=== PATIENT | male | born 1980 | race Caucasian/White ===

== ENCOUNTER 2018-12-08 07:28 | Day surgery (SDC) | payer BC ==
[2018-12-03 12:09] VITALS: BMI 31.4
[~2018-12-08 07:28] MED LIST: HYDROmorphone 0.5 MG/0.5 ML SYRINGE IVP PRN; LACTATED RINGERS 1,000 ML IV SCH; MORPHINE SULFATE 4 MG/ML SYRINGE IV PRN
[2018-12-08 07:43] VITALS: RESP 16; TEMP 97
[2018-12-08] MEDS ORDERED: LIDOCAINE 1% 20 ML VIAL (10MG/ML) FOR IV START INTRADERMA ONE (07:48)
[2018-12-08] MEDS ORDERED: MIDAZOLAM 2 MG/2 ML VIAL ONE (08:01)
[2018-12-08] MEDS ORDERED: PROPOFOL 10 MG/ML 20 ML VIAL IV ONE (08:01)
[2018-12-08] MEDS ORDERED: LIDOCAINE 1% INJ 10MG/ML (20 ML MDV) ONE (08:01)
[2018-12-08] MEDS ORDERED: GLYCOPYRROLATE 0.2 MG/ML 2 ML VIAL ONE (08:01)
--- NOTE | 2018-12-08 08:30 | P.PCN ---
Date of Procedure: 12/08/18 Procedure(s) Performed: Procedure: Esophagogastroduodenoscopy and biopsy. Preoperative diagnosis: Dysphagia. Postoperative diagnosis: 1. Small sliding hiatal hernia with obvious esophagitis or complicated reflux disease. 2. Mild antral gastritis. 3. Multiple biopsies obtained from the duodenum, antrum and esophagus. Preparation sedation: Was provided by anesthesia. Brief clinical history: The patient is a 38-year-old male who is scheduled for this evaluation because of intermittent solid food dysphagia that he has been having for 5 or 6 years. No other alarm symptoms such as weight loss. He has no significant reflux symptoms, although he takes occasional Tums. This evaluation is to assess for esophagitis, complicated reflux disease or other pathology. Procedure: With the patient on his left lateral decubitus position and after informed consent and adequate sedation, I passed the Olympus-GIF date were 90 video upper endoscope through the cricopharyngeus down the esophagus. GE junction was around 40-41 cm from the incisors and there was a small sliding hiatal hernia but no obvious esophagitis or obvious complicated reflux disease such as strictures. The endoscope was then passed into the stomach which was insufflated with air and inspected in detail including the retroflex view in the cardia. There was mottling, erythema and some friability in the antrum and prepyloric area with no ulcers or obvious erosions or bleeding. Pyloric channel, duodenal bulb, post bulbar area and descending duodenum appeared within normal limits. I obtained biopsies from the duodenum, antrum and esophagus then the endoscope was withdrawn. The patient tolerated the procedure well. Plan: The patient was reassured. Will await biopsy results. Further plans will be made based on his course and biopsy results. I anticipate that his next study will be a motility study. I will keep you updated on his progress.
[2018-12-08 08:40] VITALS: BP 116/76; PULSE 77
== END 2018-12-08 09:02 | disposition home or self-care (01) ==
LOC: ORWHC2ENDO 07:28
DX: K29.50 Unspecified chronic gastritis without bleeding (principal); K44.9 Diaphragmatic hernia without obstruction or gangrene; K20.0 Eosinophilic esophagitis
CPT/HCPCS: 88305; 43239; J2250; J2001; J2704

== ENCOUNTER 2024-05-31 07:40 | Day surgery (SDC) | payer BC ==
[2024-05-28 08:21] VITALS: BMI 32.8
[2024-05-31] MEDS: LACTATED RINGERS 1,000 ML IV SCH (08:50)
[2024-05-31] MEDS: IV FLUID CONTINUATION 1,000 ML IV ONE (08:50)
[2024-05-31 08:53] VITALS: TEMP 97.2
[2024-05-31] MEDS ORDERED: PROPOFOL 10 MG/ML 20 ML VIAL IV ONE (09:03)
[2024-05-31] MEDS ORDERED: LIDOCAINE 1% INJ 10MG/ML (20 ML MDV) ONE (09:03)
[2024-05-31 09:51] VITALS: BP 113/76; PULSE 74; RESP 16
--- NOTE | 2024-05-31 15:00 | P.OP ---
Date of Procedure: 05/31/24 Preoperative Diagnosis: Dysphagia Postoperative Diagnosis: 1. Hiatal Hernia 2. Gastritis Procedure(s) Performed: EGD with Biopsy Anesthesia: other (Sedation) Surgeon: Kb King Pathology: other (Antral Biopsies) Condition: stable Disposition: PACU Indications for Procedure: This is a very pleasant 43 year old male who presents for EGD secondary to dysphagia. He states he is having dysphagia with both liquids and solids. He states he believes his symptoms are getting worse. Description of Procedure: Informed consent was obtained. The procedure, its risks, benefits, and alternatives were discussed. The patient was placed in the left lateral decubitus position. The patient was sedated by anesthesia. The Olympus endoscope was inserted into the oropharynx and guided under direct vision into the esophagus, stomach, and duodenum. The duodenal bulb and second portion were unremarkable. The scope was withdrawn to the stomach and retroflexed. There was no increased fluid, food or secretions in the upper gastrointestinal tract. There was a small Hiatal Hernia noted. There was very minimal, nonspecific, patchy antral erythema representing gastritis. Biopsies were obtained for Helicobacter pylori. No erosions or ulcers noted. The scope was withdrawn to the esophagus. No Barretts or esophagitis was noted. There was no obvious esophageal stricture noted. The patient tolerated the procedure very well. The patient was then transferred to the recovery area in good condition. There were no apparent complications. RECOMMENDATIONS: 1. Daily PPI 2. Follow up pathology for antral biopsies 3. Recommend Upper Gastrointestinal Study for further evaluation of Dysphagia
== END 2024-05-31 09:59 | disposition home or self-care (01) ==
LOC: ORWHC2ENDO 07:40
PROVIDERS: ATTEND Surgery
DX: K29.50 Unspecified chronic gastritis without bleeding (principal); K44.9 Diaphragmatic hernia without obstruction or gangrene; K21.9 Gastro-esophageal reflux disease without esophagitis; G47.33 Obstructive sleep apnea (adult) (pediatric)
CPT/HCPCS: 43239; 88305